=== PATIENT | female | born 1980 | race Caucasian/White ===

== ENCOUNTER → 2016-09-11 | Day surgery (SDC) | payer OTHER ==
[2016-09-06 11:05] LABS: HCT 38.9 % (37.0-47.0); HGB 12.9 g/dl (12.5-16.0); MCH 31.7 pg (25.0-31.0); MCHC 33.2 g/dL (32.0-36.0); MCV 95.6 fL (78.0-100.0); MPV 10.2 fL (6.0-9.5); RBC 4.07 M/uL (4.20-5.40); RDW 12.4 % (11.5-14.0); WBC 8.2 K/uL (4.0-10.5)
[2016-09-06 11:34] LABS: ALBUMIN 4.6 g/dL (3.5-5.0); BILIRUBIN - TOTAL 0.5 mg/dL (0.1-1.0); CREATININE 0.5 mg/dL (0.5-1.0); GLOBULIN (CALCULATION) 2.6 g/dL (2.2-4.2); POTASSIUM 3.7 mmol/L (3.5-5.1); TOTAL PROTEIN 7.2 g/dL (6.4-8.3)
== END | disposition home or self-care (01) ==
LOC: FAS 07:53
PROVIDERS: Surgery
DX: K80.10 Calculus of gallbladder with chronic cholecystitis without obstruction (principal); Z98.890 Other specified postprocedural states
CPT/HCPCS: 36415; 80053; 88304; J1100; J1170; J1885; J2405; J2704; J3010; Q9962

== ENCOUNTER 2021-05-30 06:37 | Emergency (ER) | payer OTHER ==
[2021-05-30 07:35] LABS: BASOPHIL 0.7 % (0-2); EOSINOPHIL 4.2 % (0-5); HCT 38.5 % (37.0-47.0); HGB 12.5 g/dl (12.5-16.0); LYMPHOCYTE 25.2 % (15-48); MCH 31.6 pg (25.0-31.0); MCHC 32.5 g/dL (32.0-36.0); MCV 97.2 fL (78.0-100.0); MPV 10.6 fL (6.0-9.5); NEUTROPHIL 63.6 % (41-80); NRBC 0; PLT 244 K/uL (150-400); RBC 3.96 M/uL (4.20-5.40); RDW 12.8 % (11.5-14.0); WBC 6.9 K/uL (4.0-10.5)
[2021-05-30 07:43] LABS: BUN/CREAT RATIO (CALC) 45.1 RATIO; CREATININE 0.51 mg/dL (0.51-0.95); POTASSIUM 3.9 mmol/L (3.5-5.1)
[2021-05-30 08:46] LABS: BILIRUBIN NEGATIVE (NEGATIVE); BLOOD NEGATIVE Ery/uL (NEGATIVE); CLARITY CLEAR (CLEAR); COLOR YELLOW (YELLOW); GLUCOSE (U) NORMAL (NORMAL); LEUKOCYTES NEGATIVE Leu/uL (NEGATIVE); NITRITE NEGATIVE (NEGATIVE); PROTEIN NEGATIVE (NEGATIVE); SPECIFIC GRAVITY <=1.005 (1.001-1.030); UROBILINOGEN 0.2 mg/dL (0.2-1.0); pH 6.5 (5.0-9.0)
[2021-05-30] MEDS ORDERED: ROBAXIN750 MG PO (09:33)
== END 2021-05-30 09:42 | disposition home or self-care (01) ==
LOC: FER 06:37
PROVIDERS: Internal Medicine
DX: S16.1XXA Strain of muscle, fascia and tendon at neck level, initial encounter (principal); S29.012A Strain of muscle and tendon of back wall of thorax, initial encounter; V49.40XA Driver injured in collision with unspecified motor vehicles in traffic accident, initial encounter
CPT/HCPCS: 36415; 70450; 72125; 72128; 72193; 80048; 81003; 85025; Q9967